=== PATIENT | male | born 1975 | race Asian ===

== ENCOUNTER 2020-06-21 13:54 | Emergency (ER) | payer MEDICAID, SELFPAY ==
[2020-06-21 13:59] VITALS: BP 127/80; PULSE 85; RESP 18; TEMP 37; O2SAT 98; BMI 27.3
--- NOTE | 2020-06-21 15:08 | ED_ITS ---
HPI - Allergic Reaction General Chief complaint: Allergic Reaction Stated complaint: DIFF BREATHING ALLERGIES Time Seen by Provider: 06/21/20 14:59 Source: patient Mode of arrival: ambulatory Limitations: no limitations History of Present Illness HPI narrative: Patient is a 44-year-old male with a past medical history of seasonal allergies who is presenting with worsening of his seasonal allergies. He states he has a cough, feels chest tightness and wheezing. States he has used his inhaler, albuterol, a few times but it has not helped any is out of medication. He states he had an inhaler with a steroid in it previously but has not used it a couple of years because he has not needed it. He is stating rate now his seasonal allergies are acting up. He denies chest pain, sinus pain, ear pain, coughing up blood. He does admit to a slight headache. Related Data Previous Rx's Medication Instructions Recorded albuterol sulfate 2 inh INHALATION Q4-6H PRN #1 ea 06/21/20 budesonide-formoterol 2 puff INHALATION Q12H #10.2 g 06/21/20 prednisone 20 mg PO DAILY #4 tab 06/21/20 Allergies Allergy/AdvReac Type Severity Reaction Status Date / Time No Known Allergies Allergy Unverified 10/25/19 17:53 [No Known Allergies*] Review of Systems Review of Systems: Yes all other systems are reviewed and are negative FOR[facility]LY [facility] Past Medical History Medical History Hypothyroid Social History Social History Advance Directives: No Advance Directives Information Provided: No Physical Exam Vital Signs: Vital Signs: Last Vital Signs Temp 98.6 F 06/21/20 13:59 Pulse 85 06/21/20 13:59 Resp 18 06/21/20 13:59 BP 127/80 06/21/20 13:59 Pulse Ox 98 06/21/20 13:59 Body Mass Index 27.3 Const: General: cooperative, healthy appearing, comfortable and no acute distress Nutritional Appearance: average body habitus Orientation/consciousness: patient oriented x3 HENMT: Head: Yes normal to inspection, Yes No palpable skull fracture present, Yes normocephalic, Yes atraumatic and No abrasion Ears: external ears normal General nose exam: Normal external nose present Face and sinus: Yes normal facial exam Mouth: Normal oral and palatal mucosa present Throat: Yes co bblestoning Eyes: Other: No sinus tenderness General: appearance normal, both eyes and all related structures Neck: Neck: Yes normal visual inspection, Yes full ROM and Yes supple Resp: Effort & Inspection: normal respiratory effort Auscultation: wheezes scattered wheezes Neuro: General: patient oriented x3 Course Course Course Narrative: 44-year-old male with past medical history of hypothyroid and seasonal allergies complaining of worsening allergies, ran out of albuterol inhaler which was not working for him. Will give 1 dose of oral prednisone and a DuoNeb treatment then reassess. Will also send new prescriptions for inhaled steroid/LABA and BRITANY advised patient he might need to add the inhaled steroid/LABA during this time of the year when his allergies are acting up. Reevaluation(s) Reevaluation #1: Respiratory therapist reports patient's symptoms have improved, is breathing much easier, good airflow, less wheezing. Will discharge patient. She also repeated the fact that the patient needs to follow-up with his PCP to get refills on his medications. And that the new medication I prescribed you may take up to 2 weeks to start working. Time: 15:45 Discharge Plan Discharge Clinical Impression: Acute seasonal allergic rhinitis Patient Disposition: Home, Self-Care Instructions: Allergic Rhinitis (ED) Additional Instructions: As discussed, I have sent a prescription for a long-acting beta agonist and inhaled steroid which you should use daily during allergy season, this medication could take up to 2 weeks to take full effect. I also sent a refill on the your albuterol which you can use as needed and oral prednisone to take for the next 4 days. Please be sure to follow up with your doctor if you need refills in the future. We gave you 1 dose of oral prednisone today as well as a DuoNeb nebulized treatment. If you develop shortness of breath, chest pain in your medications are not helping, please call 911 or return to the emergency department. Prescriptions: New budesonide-formoterol 80-4.5 mcg/actuation HFA aerosol inhaler 2 puff inhalation Q12H Qty: 10.2 RF: 0 prednisone 20 mg tablet 20 mg PO DAILY Qty: 4 RF: 0 albuterol sulfate 90 mcg/actuation aerosol powdr breath activated 2 inh inhalation Q4-6H PRN (Reason: shortness of breath or wheezing) Qty: 1 RF: 0 Referrals: Norbert Martinez MD [Primary Care Provider] - 2 days (Follow-up, ER visit for allergies)
[2020-06-21] MEDS: predniSONE 20 MG TABLET 40 MG PO (15:19)
[2020-06-21] MEDS: Albuterol/Iprat 2.5/0.5MG 3 ML AMPUL.NEB 1.5 ML INHALE (15:23)
[2020-06-21 15:58] VITALS: PULSE 80; RESP 17; O2SAT 97
== END 2020-06-21 15:58 | disposition home or self-care (01) ==
PROVIDERS: Emergency Provider Emergency Medicine Emergency Medical Services; PCP Family Medicine
DX: J30.2 Other seasonal allergic rhinitis (principal)
CPT/HCPCS: 99284

== ENCOUNTER 2022-10-20 14:08 | Outpatient (AMB) | payer OTHER, SELFPAY ==
[2022-10-20 14:16] VITALS: BP 104/66; PULSE 51; TEMP 36.7; O2SAT 98; BMI 27.3
--- NOTE | 2022-10-20 14:16 | A.OFFVIS_ITS ---
Intake Vital Signs 10/20/22 14:16 Height 5 ft 8 in Weight 179 lb 10.828 oz BMI 27.3 BP 104/66 Blood Pressure Location Rt brachial Position Sitting Pulse 51 Pulse Source Pulse Oximeter Temp 98.1 F Temp Source Skin Pulse Oximetry (%) 98 Intake Visit Reasons: Gout Intake Note: Pt seen today for gout consult. C/o pain in right foot big toe started approx 3 weeks ago, getting better now. Balance Wheel Arm Burnisher Required: No Accompanied by: Self / Same As Patient Allergies No Known Allergies [No Known Allergies*] Allergy (Unverified 10/20/22 14:17) Medication List - Last Reconciled 10/20/22 by Misael Murray MD albuterol sulfate 90 mcg/actuation 2 inhalations inhalation Q4-6H PRN albuterol sulfate 90 mcg/actuation (Ventolin HFA) 2 puffs inhalation QID PRN budesonide-formoterol 80-4.5 mcg/actuation 2 puffs inhalation Q12H PRN finasteride 1 mg PO DAILY fluticasone propionate 50 mcg/actuation 1 spray intranasal BID levothyroxine 75 mcg PO DAILY loratadine 10 mg PO DAILY PRN HPI HPI Comments History of Present Illness Details This is a 46-year-old male who presents for evaluation of gout. Three weeks ago patient went to the [facility] for right big toe pain and swelling. The pain started abruptly, he woke up with it. He could not even touch his right big toe. He went to the emergency room. Right foot x-ray was unremarkable. Patient left before getting any treatment. Prednisone taper was prescribed starting at 40 mg daily for 5 days then 20 mg for 5 days and 10 mg for 5 days. Patient states that the prednisone helped after a few days. Currently he feels much better overall. Denies any similar gout attacks in the past except for intermittent right ankle pain. But no where near as severe as this most recent attack. He denies history of kidney stones. 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 States that since then he has had some mild kidney dysfunction. Creatinine stable around 1.3-1.4. States that his father likely had gout. 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 Physical Exam Vital Signs: Last Vital Signs Temp 98.1 F 10/20/22 14:16 Pulse 51 10/20/22 14:16 BP 104/66 10/20/22 14:16 Pulse Ox 98 10/20/22 14:16 BMI result Body Mass Index 27.3 Const General: cooperative, healthy appearing and comfortable Nutritional Appearance: overweight Orientation/consciousness: patient oriented x3 Limitations: no limitations HEENT Head: Yes normocephalic and Yes atraumatic Resp Effort & Inspection: normal respiratory effort and able to speak in complete sentences Auscultation: clear to auscultation bilaterally Cardio Rate: regular rate Rhythm: regular rhythm Skin General skin exam: no rashes or lesions noted Neuro General: patient oriented x3 Extrem Other: Right 1st MTP erythema, mild swelling and no tenderness to palpation No active synovitis otherwise No tophi noted Results Reviewed Results Reviewed: Labs 10/14/2022 Uric acid 7.0 (up to 8.7) Creatinine 1.3 (>1.2) Right foot x-ray Impression: Normal Assessment & Plan Assessment & Plan (1) Gout: Code(s): M10.9 - Gout, unspecified Qualifiers: Gout site: toe Gout etiology: idiopathic Chronicity: acute Laterality: right Qualified Code(s): M10.071 - Idiopathic gout, right ankle and foot Plan: This is a 46-year-old male presents for evaluation of gout. This is his 1st gout attack that started 3 weeks ago affecting his right 1st MTP joint. Uric acid during the attack was 7.0. He has mild CKD. Clinical picture consistent with gout. Attack significantly improved with the prednisone taper. Discussed with patient, he does not qualify today for initiation of urate lowering therapy. We discussed purine free diet. Gave patient a printout of foods to eat and foods to avoid Continue to follow patient clinically Labs before next visit in 3 months. Advised patient to call the office if he develops another attack Plan I spent 45 minutes reviewing patient's chart, evaluating patient, ordering diagnostic workup, counseling patient and documenting in the chart Orders: Orders Complete Blood Count Auto Diff 3 Months M10.9 - Gout, unspecified Comprehensive Met. Panel 3 Months M10.9 - Gout, unspecified Uric Acid 3 Months M10.9 - Gout, unspecified Coding Level of Care Code New Pt Level 4 (76868) Diagnoses Acute idiopathic gout involving toe of right foot M10.071 Gout site: toe Gout etiology: idiopathic Chronicity: acute Laterality: right
== END 2022-10-20 14:53 | disposition home or self-care (01) ==
PROVIDERS: PCP Family Medicine; Visit Provider Student in an Organized Health Care Education/Training Program
DX: M10.071 Idiopathic gout, right ankle and foot (principal)
CPT/HCPCS: 99204

== ENCOUNTER → 2022-10-20 14:08 | Outpatient (BNVA) | payer OTHER, SELFPAY | PROVIDERS: PCP Family Medicine; Visit Provider Student in an Organized Health Care Education/Training Program | DX: M10.071 Idiopathic gout, right ankle and foot (principal) | CPT/HCPCS: 99202 ==